=== PATIENT | male | born 1955 | race Caucasian/White ===

== ENCOUNTER 2019-02-01 08:54 | Day surgery (SDC) | payer OTHER, MEDICARE ==
[2019-02-01] MEDS ORDERED: NEOSTIGMINE 3 MG/3 ML SYRINGE (10:12)
[2019-02-01] MEDS ORDERED: GLYCOPYRROLATE 0.4 MG INJ (10:12)
[2019-02-01] MEDS ORDERED: FENTAnyl 50 MCG/ML VIAL ×4 (10:13→16:36)
[2019-02-01] MEDS ORDERED: PROPOFOL 20 ML (10:13)
[2019-02-01] MEDS ORDERED: DEXAMETHASONE 4 MG/ML 5 ML INJ (10:13)
[2019-02-01] MEDS ORDERED: ONDANSETRON 4 MG INJ (10:13)
[2019-02-01] MEDS ORDERED: MIDAZOLAM 1 MG/ML 2 ML INJ (10:13)
[2019-02-01] MEDS ORDERED: ROCURONIUM 50 MG INJ (10:13)
[2019-02-01] MEDS ORDERED: CEFAZOLIN 1 GM INJ (10:13)
[2019-02-01] MEDS ORDERED: ROPIVACAINE 0.5 % 30 ML VIAL ×2 (10:17→16:51)
[2019-02-01 11:11] LABS: INR 0.89; PROTIME 12.1 Sec (11.9-14.9); PT RATIO 0.9
[2019-02-01 11:12] LABS: PARTIAL THROMBOPLASTIN TIME 25.5 Sec (23.0-35.0)
[2019-02-01] MEDS ORDERED: SUGAMMADEX SODIUM 200 MG/2 ML VIAL IV (12:25)
[2019-02-01] MEDS ORDERED: IPRATROPIUM (NEB) 0.5 MG/2.5 ML AMP HHN (13:00)
[2019-02-01] MEDS ORDERED: OXYCODONE/ACETAMINOPHEN (5/325) TAB PO ×2 (13:00)
[2019-02-01] MEDS ORDERED: ALBUTEROL 0.083% (NEB) 2.5 MG/3 ML AMP HHN (13:00)
[2019-02-01] MEDS ORDERED: LABETALOL HCL 20MG INJ IV (13:00)
[2019-02-01] MEDS ORDERED: MEPERIDINE 25 MG INJ IV (13:00)
[2019-02-01] MEDS ORDERED: HYDROmorphONE 1 MG/5 ML IV SYRINGE IV ×3 (13:00)
[2019-02-01] MEDS ORDERED: DIPHENHYDRAMINE 50 MG INJ IV (13:00)
[2019-02-01] MEDS ORDERED: EPHEDrine 25 MG/5 ML SYG IV (13:00)
[2019-02-01] MEDS ORDERED: MIDAZOLAM 1 MG/ML 2 ML INJ IV (13:00)
[2019-02-01] MEDS ORDERED: TRIMETHOBENZAMIDE 100 MG/ML VIAL IM (13:00)
[2019-02-01] MEDS ORDERED: hydrALAzine 20 MG INJ IV (13:00)
[2019-02-01] MEDS ORDERED: ONDANSETRON 4 MG INJ IV (13:00)
[2019-02-01] MEDS ORDERED: FENTAnyl 50 MCG/ML VIAL IV ×3 (13:00)
[2019-02-01] MEDS: POLYMYXIN/BACITRACIN 1L IRRIG IRR (15:47)
[2019-02-01] MEDS ORDERED: BACITRACIN/POLYMYXIN 28.35 GM OINT TOP (16:47)
[2019-02-01] MEDS ORDERED: POLYMYXIN/BACITRACIN 1L IRRIG (16:47)
[2019-02-01] MEDS ORDERED: morphine 2 MG INJ IV (18:00)
== END 2019-02-01 18:55 | disposition home or self-care (01) ==
LOC: SDS 08:54
DX: M13.872 Other specified arthritis, left ankle and foot (principal); I10 Essential (primary) hypertension
CPT/HCPCS: 29899; 73610; 82306; 85610; 85730